=== PATIENT | male | born 2000 | race Hispanic/Latino ===

== ENCOUNTER 2020-11-07 21:46 | Emergency (ER) | payer OTHER ==
[~2020-11-07] VITALS: Ht 185.4 cm; Wt 78.4 kg
[2020-11-08] MEDS ORDERED: ACETAMINOPHEN 500 MG TAB PO ONE (06:25)
[2020-11-08 07:43] LABS: BASO % 0.5 % (0.0-1.0); EOS # 0.4 10^3/uL (0.0-0.5); EOS % 7.3 % (0.0-3.0); HEMATOCRIT 49.8 % (42.0-52.0); HEMOGLOBIN 16.9 g/dl (13.5-17.5); LYMPH % 18.9 % (24.0-44.0); MEAN CORPUSCULAR HEMOGLOBIN 30.1 pg (27.0-33.0); MEAN CORPUSCULAR HGB CONC 33.9 g/dl (32.0-36.5); MEAN CORPUSCULAR VOLUME 88.6 fl (80.0-96.0); MONO # 0.8 10^3/uL (0.0-0.8); MONO % 14.5 % (2.0-8.0); NEUTROPHILS # 3.2 10^3/uL (1.5-8.5); NEUTROPHILS % 58.6 % (36.0-66.0); PLATELET COUNT, AUTOMATED 218 10^3/uL (150-450); RED BLOOD COUNT 5.62 10^6/uL (4.30-6.10); WHITE BLOOD COUNT 5.5 10^3/uL (4.0-10.0)
--- NOTE | 2020-11-08 08:42 | REP ---
INDICATION: L supraclavicular lymphadenopathy s/p COVID vaccine. COMPARISON: None. TECHNIQUE: Grayscale and color Doppler ultrasound evaluation of the neck was performed. FINDINGS: There are multiple reactive left supraclavicular lymph nodes corresponding to the palpable abnormality. IMPRESSION: Reactive left supraclavicular lymph nodes. This is likely related to the patient's recent COVID vaccination. <Electronically signed by Zach Vieira > 11/08/20 0875
[2020-11-08 09:31] VITALS: BP 124/78
== END 2020-11-08 09:32 | disposition home or self-care (01) ==
LOC: M ED 21:46
DX: R59.0 Localized enlarged lymph nodes (principal); T50.995A Adverse effect of other drugs, medicaments and biological substances, initial encounter; Y92.89 Other specified places as the place of occurrence of the external cause; F17.210 Nicotine dependence, cigarettes, uncomplicated